=== PATIENT | female | born 1990 | race Two or more races ===

== ENCOUNTER 2018-04-22 19:20 | Emergency (ER) | payer OTHER ==
[~2018-04-22] VITALS: Ht 162.6 cm; Wt 58.1 kg
[2018-04-22 19:30] VITALS: BP 119/75
[2018-04-22] MEDS ORDERED: Tranexamic Acid(Epistaxis Use) TOPIC ONE (19:45)
[2018-04-22] MEDS ORDERED: IBUPROFEN600 MG ORAL (19:49)
[2018-04-22] MEDS ORDERED: NORCO 5-325 TA1 EACH ORAL (19:49)
[2018-04-22] MEDS ORDERED: Tetanus/Diptheria/Pertussis Vaccine 0.5ml Syr IM ONE (20:00)
--- NOTE | 2018-04-22 20:05 | Emergency Room Report ---
History of Present Illness General Chief Complaint: Laceration Source: Patient Present Illness HPI Patient is a 28 year-old female who is right-hand dominant who presented after after laceration to her right thumb. 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 The injury occurred approximately 3 hours prior to arrival. She denies any other injuries. She noticed increased bleeding and subsequently presented to the emergency department. Allergies: Coded Allergies: No Known Allergies (Unverified , 04/22/18) Patient History Past Medical History: see triage record Last Menstrual Period: 03/15/18 Now: No Reviewed Nursing Documentation: PMH: Agreed; PSxH: Agreed Nursing Documentation-PMH Past Medical History: No History, Except For Review of Systems All Other Systems: negative except mentioned in HPI Physical Exam Vital Signs Date Time Temp Pulse Resp B/P (MAP) Pulse Ox O2 Delivery O2 Flow Rate FiO2 04/22/18 19:23 97.9 74 18 119/75 100 Room Air General Appearance: well appearing, no apparent distress, alert, GCS 15, non- toxic Head: normocephalic, atraumatic ENT: hearing grossly normal, normal voice Neck: full range of motion, supple Respiratory: no respiratory distress, speaking full sentences Gastrointestinal: normal inspection, normal bowel sounds, non tender, soft, no mass Musculoskeletal: normal inspection Neurologic: normal inspection, alert, oriented x3, responsive, cloud engineer III-XII nml as tested, normal gait Psychiatric: mood/affect normal Skin: other - avulsion of skin to thumb Medical Decision Making Diagnostic Impression: Primary Impression: Avulsion, skin ER Course Patient presented for skin avulsion. Differential diagnosis included was not limited to fracture, arterial injury, infection among others.Because of complexity of patient's case imaging studies were ordered. Patient was noted to have evidence of skin avulsion. X-ray imaging read by radiology showed noted fracture. The patient's wound was initially dressed with topical tranexamic acid to stop bleeding. The this is unsuccessful and patient was subsequently cauterized with silver nitrate. The sterile dressing was applied. The patient was advised to maintain pressure if bleeding recurred. She is advised wound recheck in 2 days. Last Vital Signs Date Time Temp Pulse Resp B/P (MAP) Pulse Ox O2 Delivery O2 Flow Rate FiO2 04/22/18 19:23 97.9 74 18 119/75 100 Room Air Status: improved Disposition: HOME, SELF-CARE Condition: Stable Scripts Ibuprofen* (MOTRIN*) 600 Mg Tablet 600 MG ORAL Q8H PRN for For Pain, #30 TAB 0 Refills Prov: Phi Hudson MD 04/22/18 Hydrocodone Bit/Acetaminophen 5-325* (NORCO 5-325*) 1 Each Tablet 1 TAB ORAL Q6H PRN for For Pain, #10 TAB 0 Refills Prov: Phi Hudson MD 04/22/18 Patient Instructions: Nonsutured Laceration Care Phi Hudson MD Apr 22, 2018 20:05
[2018-04-22] MEDS ORDERED: Silver Nitrate Stick TOPIC ONE ×2 (20:28→20:30)
--- NOTE | 2018-04-22 20:36 | Diagnostic Imaging Report ---
EXAM: XR Right Hand Complete, 3 or More Views CLINICAL HISTORY: PAIN TECHNIQUE: Frontal, lateral and oblique views of the right hand. COMPARISON: No relevant prior studies available. FINDINGS: Bones/joints: Overlying gauze decrease soft tissue and bone detail of the thumb. No fracture. No dislocation. Soft tissues: Soft tissue swelling, possible gas in distal thumb. No radiopaque foreign object. IMPRESSION: No fracture. No radiopaque foreign object.
[2018-04-22 20:48] VITALS: BP 121/71
[2018-04-22 21:01] VITALS: BP 119/75
== END 2018-04-22 20:50 | disposition home or self-care (01) ==
LOC: EMR 20:21
DX: S61.011A Laceration without foreign body of right thumb without damage to nail, initial encounter (principal); W26.0XXA Contact with knife, initial encounter; Y92.511 Restaurant or cafe as the place of occurrence of the external cause; Y99.0 Civilian activity done for income or pay; Z23 Encounter for immunization
CPT/HCPCS: 90471; 90715; 99283